=== PATIENT | male | born 1980 | race Caucasian/White ===

== ENCOUNTER 2022-05-12 15:29 | Emergency (ER) | payer OTHER, SELFPAY ==
[2022-05-12 15:48] VITALS: BP 117/74; PULSE 84; RESP 18; TEMP 35.9; O2SAT 99
--- NOTE | 2022-05-12 15:58 | ED.GENADULT ---
HPI - General Adult General Chief complaint: Upper Respiratory Infection Stated complaint: Covid possibly History of Present Illness HPI narrative: Patient is a 41-year-old male who presents to the [facility] via [facility] for evaluation of COVID-like symptoms that began today. Additionally, he reports sweats, nonproductive cough, nasal congestion, and fatigue. Denies known exposure to sick contacts. Denies taking OTC meds for symptoms. He does not identify alleviating or aggravating factors. He reports that he is fully vaccinated against COVID-19. Related Data Home Medications Medication Instructions Recorded Confirmed No Home Medications 05/12/22 05/12/22 Allergies Allergy/AdvReac Type Severity Reaction Status Date / Time No Known Allergies Allergy Verified 05/12/22 16:04 Review of Systems Review of Systems: Denies history of COPD, bronchitis, asthma, and pneumonia. Denies current/past tobacco use. Pertinent negatives: fever, chills, change in appetite, skin color changes, headache, nasal congestion/discharge, dizziness, lymphadenopathy, sinus problems, ear pain/drainage, chest pain, heart murmurs, heart palpitations, shortness of breath, wheezing, cyanosis, hemoptysis, hoarseness, orthopnea, pleuritic pain, nausea, vomiting, diarrhea, and myalgias. PMFSH Comments I have reviewed and agree with the patient's past medical, surgical, social, and family hx as documented by the RN. There is no relevant family history pertinent to the presenting complaint. Exam Narrative: GENERAL: Well-appearing, well-nourished, and in no acute distress. HEAD: Normocephalic, atraumatic. No sinus tenderness or facial swelling appreciated. EYES: PERRLA and EOMI. No evidence of erythema, swelling, or drainage. ENT: Bilateral external ears and ear canals normal. Bilateral TMs are normal.No TM perforation. Nares clear, no rhinorrhea or epistaxis. Bilateral turbinates without erythema/ swelling. Mucous membranes moist and pink. Uvula is midline without erythema and swelling. No evidence of petechial rash, cobblestoning, lesions, ulcers, erythema, swelling, exudates, peritonsillar abscess, tenting, or drooling. Breath odor and voice normal. NECK: Supple. No Lymphadenopathy or nuchal rigidity appreciated. CHEST: Bilateral lung carias are clear to auscultation. No respiratory distress. No evidence of cough or pleuritic cp upon examination. HEART: Regular rate and rhythm. No murmur, gallop, or rub heard. EXTREMITIES: Normal range of motion. No edema. SKIN: Warm, dry, no rash. NEURO: No focal deficits. Alert and oriented x3. Course Course Level of Care: Express Care Visit Vital Signs Vital signs: Vital Signs Temperature 96.7 F L 05/12/22 15:48 Pulse Rate 84 05/12/22 15:48 Respiratory Rate 18 05/12/22 15:48 Blood Pressure 117/74 05/12/22 15:48 Pulse Oximetry 99 05/12/22 15:48 Oxygen Delivery Room Air 05/12/22 15:48 Temperature 96.7 F L 05/12/22 15:48 Pulse Rate 84 05/12/22 15:48 Respiratory Rate 18 05/12/22 15:48 Blood Pressure 117/74 05/12/22 15:48 Pulse Oximetry 99 05/12/22 15:48 Oxygen Delivery Room Air 05/12/22 15:48 Medical Decision Making Differential Diagnosis Differential Diagnosis: allergic rhinitis, ABRS, acute viral sinusitis, strep pharyngitis, nasopharyngitis, bronchitis, pneumonia, AOM, otitis externa, viral URI, influenza, covid-19 Vital Signs Vital Signs: Vital Signs Temperature 96.7 F L 05/12/22 15:48 Pulse Rate 84 05/12/22 15:48 Respiratory Rate 18 05/12/22 15:48 Blood Pressure 117/74 05/12/22 15:48 Pulse Oximetry 99 05/12/22 15:48 Oxygen Delivery Room Air 05/12/22 15:48 Temperature 96.7 F L 05/12/22 15:48 Pulse Rate 84 05/12/22 15:48 Respiratory Rate 18 05/12/22 15:48 Blood Pressure 117/74 05/12/22 15:48 Pulse Oximetry 99 05/12/22 15:48 Oxygen Delivery Room Air 05/12/22 15:48 Lab Data Lab results [facility]
== END 2022-05-12 16:14 | disposition home or self-care (01) ==
PROVIDERS: Emergency Provider Nurse Practitioner Family
DX: U07.1 COVID-19 (principal)
CPT/HCPCS: 87426; 99203; C9803; G0463